=== PATIENT | male | born 1985 | race Two or more races ===

== ENCOUNTER 2018-03-27 06:15 | Day surgery (SDC) | payer BC, OTHER ==
[2018-03-20 10:48] VITALS: BMI 38.0
[2018-03-27] MEDS ORDERED: MIDAZOLAM HCL 2 MG/2 ML SINGLE DOSE VIAL ONE ×2 (07:08→08:43)
[2018-03-27] MEDS ORDERED: BUPIVACAINE HCL/PF (5 MG/ML) 30 ML VIAL IJ ONE ×2 (07:08→08:06)
[2018-03-27] MEDS ORDERED: DEXAMETHASONE SOD PHOSPHATE/PF 10 MG/ML SDV ONE (07:08)
[2018-03-27] MEDS ORDERED: methylPREDNISolone ACET (DEPO) 40 MG/1 ML VIAL ONE (07:18)
[2018-03-27] MEDS ORDERED: oxyCODONE HCL 10 MG SUSTAINED ACTING TABLET PO STA (07:19)
[2018-03-27] MEDS ORDERED: THROMBIN (BOVINE) 5,000 UNIT VIAL TP ONE (07:19)
[2018-03-27] MEDS ORDERED: LIDOCAINE 1%/EPI 1:100000 (20 ML MULTI DOSE VIAL) ONE ×2 (07:19→09:55)
[2018-03-27] MEDS ORDERED: GABAPENTIN 300 MG CAPSULE (FP) ONE (07:25)
[2018-03-27] MEDS ORDERED: GABAPENTIN 300 MG CAPSULE (FP) PO ONE (07:35)
--- NOTE | 2018-03-27 07:35 | HP ---
History & Physical Update - History History: No Change - Physical Physical: No Change - Assessment Assessment: No Change - Plan Plan: No Change (no change since visit on 03/25/18 with PCP)
[2018-03-27] MEDS ORDERED: GUM MASTIC/STORAX/MSAL/ALCOHOL 1 DRP DROPSBTL MC ONE (07:52)
[2018-03-27] MEDS ORDERED: ONDANSETRON 4 MG/2 ML VIAL ONE ×2 (08:39→10:38)
[2018-03-27] MEDS ORDERED: DEXAMETHASONE SOD PHOSPHATE 4 MG/1 ML VIAL ONE (08:39)
[2018-03-27] MEDS ORDERED: ceFAZolin SODIUM 1 GM VIAL ONE (08:39)
[2018-03-27] MEDS ORDERED: oxyCODONE HCL 5 MG TABLET PO PRN (10:27)
[2018-03-27] MEDS ORDERED: ONDANSETRON 4 MG/2 ML VIAL IVPUSH PRN (10:27)
[2018-03-27] MEDS ORDERED: LACTATED RINGERS SOLUTION 1,000 ML IV SCH (10:30)
--- NOTE | 2018-03-27 10:47 | SURG ---
Surgery Industrial Controls Technician Note Industrial Controls Technician: Jenna Hu PA-C Date of Service: 03/27/18 Diagnosis: Lumbar stenosis, LE radiculopathy Procedure: L2-L3 Laminectomy I was present for the entirety of the operative procedure. For further detail, please refer to operative report. Visit type - Case Type Case Type: Scheduled - Emergency Emergency Visit: No - New patient This patient is new to me today: Yes Date on this admission: 03/27/18
--- NOTE | 2018-03-27 10:49 | OP ---
Operative Note - Note: Operative Date: 03/27/18 Pre-Operative Diagnosis: lumbar radiculopathy Operation: L2-L3 laminectomy Post-Operative Diagnosis: Same as Pre-op Surgeon: Elian Shannon Manager Digital: Jenna Hu Anesthesiologist/FIBROUS WALLBOARD INSPECTOR: Violeta Michaud Anesthesia: Spinal Estimated Blood Loss (mls): 20 Fluid Volume Replaced (mls): 500 Operative Report Dictated: Yes
--- NOTE | 2018-03-27 11:18 | OP ---
DATE OF OPERATION: 03/27/2018 PREOPERATIVE DIAGNOSIS: L2-3 spinal stenosis. POSTOPERATIVE DIAGNOSIS: L2-3 spinal stenosis. PROCEDURE PERFORMED: Laminectomy at L2-3. SURGEON: Elian Shannon MD ENVIRONMENTAL EMERGENCIES ASSISTANT: [facility] [place] ESTIMATED BLOOD LOSS: 50 mL INTRAVENOUS FLUIDS: Per Anesthesia. COMPLICATIONS: None. ANESTHESIA: Spinal/TLIP. DISPOSITION: Patient was brought to the PACU in stable condition. INDICATION FOR SURGERY: The patient is a 32-year-old gentleman who has been suffering from pain from his back down his leg. X-rays and MRI were completed which noted that he had spinal stenosis at L2-3. He had gone through an exhaustive course of treatment for this, which included medications, physical therapy as well as injections. Unfortunately, his pain continued to persist despite all this. At this point, risks, benefits, and alternatives were discussed, and the patient consented to surgery. DESCRIPTION OF PROCEDURE: Patient was brought to the operating room by the anesthesia staff. After appropriate patient identification was performed, spinal anesthesia was given. A TLIP block was also given. Patient was able to position himself prone onto the Donald frame with all areas of bony prominences well padded at this time. Two needles were placed into his back to steven off the L2-3 segments. X-ray was taken to confirm this as correct. [place] were removed, and 10 mL of lidocaine with epinephrine were injected into his back at this time. His back was prepped and draped in a sterile manner. At this point, a timeout was completed. An incision was made from the top of L2 down to the bottom of L3. Dissection was carried down to the fascia. Fascia was then split open at this time. Appropriate retractors were then placed in. A spinal needle was placed onto the L2 lamina to steven off the L2-3 space. An x-ray was taken to confirm this as correct. The needle was removed, and the microscope was brought in. The interspinous ligament at L2-3 was removed. Portions of the L2 and L3 spinous processes were removed. A eugene was used to remove portion of the lamina. Flavum was identified and was removed. A complete decompression was performed such that by the end of the procedure the L3 nerve root appeared to be well decompressed. All bleeding was well controlled at this time. Steroid was placed over the nerve root. FloSeal was placed over that. The fascia was closed with a No. 1 Vicryl suture. Subcutaneous tissues were closed with 2-0 Vicryl suture. Skin was closed with 3-0 Monocryl suture. Dermabond was applied. Steri-Strips were applied. A sterile dressing was applied. Patient was placed supine on the OR bed and brought to the PACU in stable condition. Rosario CHU/[id number]
[2018-03-27 11:56] VITALS: BP 129/82; PULSE 78; TEMP 98.2
== END 2018-03-27 12:01 | disposition home or self-care (01) ==
LOC: FASU 06:15
PROVIDERS: ATTEND Orthopaedic Surgery Orthopaedic Surgery of the Spine
PROC: 01NB0ZZ Release Lumbar Nerve, Open Approach (ICD-10-PCS; principal; 2018-03-27 09:04)
DX: M48.061 Spinal stenosis, lumbar region without neurogenic claudication (principal)
CPT/HCPCS: 72100-TC-FY; 94760